=== PATIENT | male | born 1995 | race Caucasian/White ===

== ENCOUNTER 2020-09-10 23:26 | Emergency (ER) | payer OTHER ==
[~2020-09-10 23:26] MED LIST: ANTI-ITCH28 GM TP; AUGMENTIN 875-1 EACH PO; BENADRYL 25MG C25 MG PO; MEDROL DOSEPAK 24 MG PO; TYLENOL 325MG325 MG PO
== END 2020-09-11 01:40 | disposition home or self-care (01) ==
LOC: ER1 23:26
DX: R06.02 Shortness of breath (principal); F17.200 Nicotine dependence, unspecified, uncomplicated; Z86.19 Personal history of other infectious and parasitic diseases; Z20.822 Contact with and (suspected) exposure to COVID-19
CPT/HCPCS: 99283; U0003

== ENCOUNTER → 2020-09-20 | Outpatient (CLI) | payer OTHER | LOC: RAD 15:26 | DX: R10.84 Generalized abdominal pain (principal); R93.3 Abnormal findings on diagnostic imaging of other parts of digestive tract | CPT/HCPCS: 74018 ==

== ENCOUNTER 2021-02-01 06:48 | Emergency (ER) | payer OTHER | END 2021-02-01 08:45 | disposition home or self-care (01) | LOC: ER1 06:48 | DX: I73.9 Peripheral vascular disease, unspecified (principal); F15.10 Other stimulant abuse, uncomplicated | CPT/HCPCS: 99283 ==

== ENCOUNTER 2021-11-20 12:17 | Emergency (ER) | payer OTHER ==
[2021-11-20 13:31] LABS: HEMOGLOBIN 15.3 gm/dl (14.0-17.5); RED BLOOD COUNT 5.27 M/UL (4.20-5.50); WHITE BLOOD COUNT 11.6 K/UL (4.5-11.0)
[2021-11-20 13:54] LABS: BUN/CREATININE RATIO 13 (0-10)
[2021-11-20] MEDS ORDERED: BACTRIM DS TAB1 EACH PO ×2 (14:44→15:58)
== END 2021-11-20 15:15 | disposition home or self-care (01) ==
LOC: ER1 12:17
PROVIDERS: Nurse Practitioner
DX: L03.115 Cellulitis of right lower limb (principal); L03.116 Cellulitis of left lower limb
CPT/HCPCS: 73600; 80053; 80307; 81001; 85025; 85652; 86140; 99283